=== PATIENT | female | born 1965 | race Caucasian/White ===

== ENCOUNTER 2018-01-08 15:46 | Emergency (ER) | payer MEDICAID ==
[~2018-01-08] VITALS: Ht 167.6 cm; Wt 87.1 kg
[2018-01-08 15:48] VITALS: Ht 167.6 cm; Wt 87.1 kg
[2018-01-08 16:44] LABS: BASOPHIL % 0.5 % (0-2)
[2018-01-08 16:49] LABS: PLATELET COUNT 420 x10^3mcL (130-400); RED CELL DISTRIBUTION WIDTH 16.6 % (11.5-14.5)
[2018-01-08 17:00] LABS: FREE T4 0.91 ng/dL (0.76-1.46)
[2018-01-08 18:24] VITALS: BP 137/49
== END 2018-01-08 18:24 | disposition home or self-care (01) ==
LOC: ED 15:46
PROVIDERS: Emergency Medicine
DX: N93.8 Other specified abnormal uterine and vaginal bleeding (principal)
CPT/HCPCS: 36415; 84439; J1885; Q0092